=== PATIENT | female | born 2000 | race Caucasian/White ===

== ENCOUNTER 2023-03-04 18:06 | Emergency (ER) | payer SELFPAY ==
[~2023-03-04] VITALS: Ht 167.6 cm; Wt 59.0 kg
[2023-03-04 18:11] VITALS: BP 128/84
[2023-03-04 18:57] LABS: BASOPHILS ABSOLUTE AUTO 0.07 K/mm3 (0.00-0.23); BASOPHILS PERCENT AUTO 0 % (0-2); EOSINOPHILS PERCENT AUTO 0 % (0-6); Hematocrit 46.1 % (33.0-51.0); Hemoglobin 15.7 g/dL (11.5-16.0); IMMATURE GRAN ABSOLUTE AUTO 0.12 K/mm3 (0.00-0.10); IMMATURE GRAN PERCENT AUTO 1 % (0-1); LYMPHOCYTES ABSOLUTE AUTO 1.22 K/mm3 (0.84-5.20); LYMPHOCYTES PERCENT AUTO 5 % (21-46); MONOCYTES ABSOLUTE AUTO 1.66 K/mm3 (0.16-1.47); MONOCYTES PERCENT AUTO 7 % (4-13); Mean Corpuscular HGB Conc 34.1 g/dL (31.5-36.5); Mean Corpuscular Volume 85 fL (80-100); Mean Platelet Volume 10.8 fL (9.1-12.4); NEUTROPHILS ABSOLUTE AUTO 20.41 K/mm3 (1.96-9.15); NEUTROPHILS PERCENT AUTO 87 % (41-73); Platelet Count 294 K/mm3 (150-400); RDW Coefficient Variation 12.1 % (11.7-14.2); Red Blood Cell Count 5.41 M/mm3 (3.80-5.20); White Blood Cell Count 23.48 K/mm3 (4.00-11.30)
[2023-03-04 19:13] LABS: Influenza A, PCR NEGATIVE (NEGATIVE); Influenza B, PCR NEGATIVE (NEGATIVE); Resp Syncytial Virus, PCR NEGATIVE (NEGATIVE); SARS-Cov-2 (COVID-19) PCR, MMC NEGATIVE (NEGATIVE)
[2023-03-04 19:19] LABS: Beta Hcg Serum Pregnancy Negative (Negative); Mono Spot Negative (NEGATIVE)
[2023-03-04 19:29] LABS: Bun/Creatinine Ratio 15.9 (12.0-20.0); Calcium, Blood 9.6 mg/dL (8.5-10.1); Creatinine, Blood 0.69 mg/dL (0.40-1.00); Potassium, Blood 3.5 mmol/L (3.5-5.5)
[2023-03-04] MEDS ORDERED: Veetids 500500 MG PO (19:44)
== END 2023-03-04 20:00 | disposition home or self-care (01) ==
LOC: ER 18:06
PROVIDERS: Emergency Medicine; Physician Assistant
DX: J02.0 Streptococcal pharyngitis (principal); Z20.822 Contact with and (suspected) exposure to COVID-19
CPT/HCPCS: 0241U; 80048; 84703; 85025; 86308; 87081; 87430; 96361; 96374; 99283-25; A9270; J1885; J7030

== ENCOUNTER 2024-05-29 09:30 | Inpatient (IN) | payer OTHER ==
[~2024-05-29] VITALS: Ht 167.6 cm; Wt 63.5 kg
[2024-05-29] VITALS (14 sets, daily range): BP systolic 113–139; BP diastolic 68–97
[~2024-05-29 09:30] MED LIST: Oxytocin 10 Unit / ML Vial IV ONE; Veetids 500500 MG PO
[2024-05-29] MEDS ORDERED: Oxytocin 10 Unit / ML Vial IM SCH (09:45)
[2024-05-29] MEDS ORDERED: FentaNYL 2mcg/ml-Bup 0.1% Epd 250 ML EPI PRN (09:45)
[2024-05-29] MEDS ORDERED: OXYTOCIN/RINGER'S LACTATE 500 ML IV SCH ×2 (09:45→12:00)
[2024-05-29] MEDS ORDERED: ePHEDrine Sulfate 50 MG/ML 1ML Injection XX PRN (09:45)
[2024-05-29] MEDS ORDERED: Castor Oil 59.146 ML BTL TOP SCH (09:45)
[2024-05-29] MEDS ORDERED: Lidocaine HCl 1% 30 ML SDV XX SCH (09:45)
[2024-05-29] MEDS ORDERED: Methylergonovine Maleate 0.2MG / ML 1ML Amp IM SCH (09:45)
[2024-05-29] MEDS ORDERED: Bupivacaine 0.5% HCl 5 MG/ML 30MLVIAL XX SCH (09:45)
[2024-05-29] MEDS ORDERED: Misoprostol 200 MCG Tab PR SCH (09:45)
[2024-05-29] MEDS ORDERED: Lactated Ringer's 1,000 ML IV PRN (09:45)
[2024-05-29] MEDS ORDERED: Bupivacaine HCl 2.5 MG/ML 10ML P/F Injection XX SCH (09:45)
[2024-05-29] MEDS ORDERED: Lactated Ringer's 1,000 ML IV SCH ×3 (09:45→11:55)
[2024-05-29] MEDS ORDERED: FentaNYL Citrate 50 MCG/ML 2 ML Injection IV PRN (09:50)
[2024-05-29] MEDS ORDERED: Ondansetron HCl 2 MG / ML 2ML Vial IV PRN (09:50)
[2024-05-29] MEDS ORDERED: OXYTOCIN/RINGER'S LACTATE 500 ML IV ONE (09:54)
[2024-05-29] MEDS ORDERED: Lactated Ringer's 1,000 ML IV ONE (09:55)
[2024-05-29 10:08] LABS: BASOPHILS ABSOLUTE AUTO 0.04 K/mm3 (0.00-0.23); BASOPHILS PERCENT AUTO 0 % (0-2); EOSINOPHILS ABSOLUTE AUTO 0.06 K/mm3 (0.00-0.68); EOSINOPHILS PERCENT AUTO 0 % (0-6); Hematocrit 34.6 % (33.0-51.0); Hemoglobin 11.7 g/dL (11.5-16.0); IMMATURE GRAN ABSOLUTE AUTO 0.07 K/mm3 (0.00-0.10); IMMATURE GRAN PERCENT AUTO 1 % (0-1); LYMPHOCYTES ABSOLUTE AUTO 2.85 K/mm3 (0.84-5.20); LYMPHOCYTES PERCENT AUTO 19 % (21-46); MONOCYTES ABSOLUTE AUTO 1.19 K/mm3 (0.16-1.47); MONOCYTES PERCENT AUTO 8 % (4-13); Mean Corpuscular HGB Conc 33.8 g/dL (31.5-36.5); Mean Corpuscular Volume 86 fL (80-100); Mean Platelet Volume 11.8 fL (9.1-12.4); NEUTROPHILS ABSOLUTE AUTO 10.88 K/mm3 (1.96-9.15); NEUTROPHILS PERCENT AUTO 72 % (41-73); Platelet Count 273 K/mm3 (150-400); RDW Coefficient Variation 13.4 % (11.7-14.2); RDW Standard Deviation 41.8 fL (35.1-46.3); Red Blood Cell Count 4.04 M/mm3 (3.80-5.20); White Blood Cell Count 15.09 K/mm3 (4.00-11.30)
[2024-05-29] MEDS ORDERED: Witch Hazel/Glycerin PADS TOP PRN (11:55)
[2024-05-29] MEDS ORDERED: Acetaminophen 325 MG TABLET PO PRN (11:55)
[2024-05-29] MEDS ORDERED: Benzocaine Topical Anesthetic Spray 60GM TOP PRN (11:55)
[2024-05-29] MEDS ORDERED: Docusate Sodium 100 MG Cap PO PRN (11:55)
[2024-05-29] MEDS ORDERED: Ketorolac Tromethamine 30mg Vial IV ONE (12:00)
[2024-05-29] MEDS ORDERED: Ibuprofen 400 MG Tab PO PRN (12:00)
[2024-05-29] MEDS ORDERED: Misoprostol 100 MCG Tab PO PRN (12:00)
[2024-05-29] MEDS ORDERED: Oxytocin 10 Unit / ML Vial IM ONE (12:00)
[2024-05-29] MEDS ORDERED: Methylergonovine Maleate 0.2MG / ML 1ML Amp IM PRN (12:00)
[2024-05-29] MEDS ORDERED: Lanolin Cream TOP PRN (12:00)
[2024-05-29] MEDS ORDERED: OxyCODONE 5 mg/Acetamin 325 mg TABLET PO PRN (12:05)
[2024-05-29] MEDS ORDERED: Diphth,Pertuss(Acell),Tet Vac 0.5 ML VIAL IM SCH (16:00)
[2024-05-29] MEDS ORDERED: Ketorolac Tromethamine 30mg Vial IV PRN (18:00)
[2024-05-30 03:04] VITALS: BP 123/80
[2024-05-30 07:18] VITALS: BP 145/96
[2024-05-30] MEDS ORDERED: Prenatal Vit/FE Fumarate/FA 1 Tab PO SCH (09:00)
--- NOTE | 2024-05-30 11:17 | NUR ---
DISCHARGE TEACHING COMPLETED WITH PATIENT. VERBALIZES UNDERSTANDING AND HAS NO FURTHER QUESTIONS AT THIS TIME
[2024-05-30 12:50] VITALS: BP 131/86
--- NOTE | 2024-06-01 17:54 | NUR ---
UPDATED WEIGHT AND LENGTH PER EMR
== END 2024-05-30 13:40 | disposition home or self-care (01) | DRG 807 ==
LOC: OBS 09:30 → BC 09:30 → OBS 09:36 → BC 09:36
PROVIDERS: ADMIT Advanced Practice Midwife
PROC: 10E0XZZ Delivery of Products of Conception, External Approach (ICD-10-PCS; principal; 2024-05-29)
DX: O42.02 Full-term premature rupture of membranes, onset of labor within 24 hours of rupture (principal); Z37.0 Single live birth; Z3A.38 38 weeks gestation of pregnancy; O70.9 Perineal laceration during delivery, unspecified
CPT/HCPCS: 36415; 85025; 86850; 86900; 86901; A9270; J1885; J2590